=== PATIENT | female | born 1935 | race Caucasian/White ===

== ENCOUNTER 2017-12-26 09:27 | Day surgery (SDC) | payer MEDICARE, BC ==
[~2017-12-26] VITALS: Ht 160.1 cm; Wt 70.0 kg
[2017-12-26] VITALS (11 sets, daily range): BP systolic 87–164; BP diastolic 56–88; PULSE 51–68; TEMP 97
[2017-12-26 10:18] LABS: HEMATOCRIT 41.8 % (37.0-47.0); MEAN CELL VOLUME 93 fl (80.0-100.0); MEAN CORPUSCULAR HEMOGLOBIN 31 pg (27.0-31.0); MEAN CORPUSCULAR HGB CONC 34 g/dl (33.0-37.0); MEAN PLATELET VOLUME 9.7 fl (7.4-10.4); PLATELET COUNT 231 K/mm3 (130-400); RED BLOOD COUNT 4.49 M/mm3 (4.10-5.30); REDCELL DISTRIBUTION WIDTH-CV 13.5 % (11.5-14.5)
[2017-12-26 10:26] LABS: PROTHROMBIN TIME 10.9 SECONDS (9.7-12.8)
[2017-12-26 10:27] LABS: CALCIUM 9.9 mg/dL (8.4-10.2); CREATININE, serum 0.75 mg/dL (0.52-1.25)
[2017-12-26] MEDS ORDERED: L-thyroxine (10:28)
[2017-12-26] MEDS ORDERED: TAMBOCOR50 MG PO (10:29)
[2017-12-26] MEDS ORDERED: LIPITOR 10MG10 MG PO (10:30)
[2017-12-26] MEDS ORDERED: BENICAR HCT 12.1 TAB PO (10:34)
[2017-12-26] MEDS ORDERED: ASPIRIN E.C. 8181 MG PO (10:35)
[2017-12-26] MEDS ORDERED: LUTEIN6 MG (10:36)
[2017-12-26] MEDS ORDERED: BILBERRY EXTRAC80 MG PO (10:37)
[2017-12-26] MEDS ORDERED: [UNRECOGNIZED DRUG - OTHER] (10:39)
[2017-12-26] MEDS ORDERED: VITAMIN C500 MG PO (10:39)
[2017-12-26] MEDS ORDERED: VITAMIN D3400 I1 (10:40)
[2017-12-26] MEDS ORDERED: B COMPLEX #11 TAB (10:41)
[2017-12-26] MEDS ORDERED: MAGNESIUM500 MG PO (10:41)
[2017-12-26] MEDS ORDERED: MULTIPLE VITAMI1 CAP PO (10:42)
[2017-12-26] MEDS ORDERED: CRANBERRY450 MG PO (10:43)
[2017-12-26] MEDS ORDERED: VITAMIN FLUSH-F1 CAP (10:44)
[2017-12-26] MEDS ORDERED: FISH OIL 1000MG1 CAP PO (10:45)
[2017-12-26] MEDS ORDERED: REFRESH TEARS 330 ML OP (10:46)
== END 2017-12-26 18:30 | disposition home or self-care (01) ==
LOC: COL.CAR 09:27
PROVIDERS: Internal Medicine Cardiovascular Disease
DX: I25.10 Atherosclerotic heart disease of native coronary artery without angina pectoris (principal); R94.39 Abnormal result of other cardiovascular function study; I10 Essential (primary) hypertension; E03.9 Hypothyroidism, unspecified; I08.0 Rheumatic disorders of both mitral and aortic valves; K21.9 Gastro-esophageal reflux disease without esophagitis; Z90.5 Acquired absence of kidney; Z88.0 Allergy status to penicillin; Z88.8 Allergy status to other drugs, medicaments and biological substances; Z88.1 Allergy status to other antibiotic agents; Z82.49 Family history of ischemic heart disease and other diseases of the circulatory system
CPT/HCPCS: J1644; J2250; J3010; Q9967